=== PATIENT | male | born 1955 | race Caucasian/White ===

== ENCOUNTER → 2016-10-28 | Day surgery (SDC) | payer BC ==
[~2016-10-28] MED LIST: BUPIVACAINE/EPINEPHRINE 0.5% 50 ML VIAL ONE; CLINDAMYCIN PHOS 600 MG/4 ML VIAL ONE; LACTATED RINGER'S 1000 ML INJ 1,000 ML ONE; MIDAZOLAM HCL 2 MG/2 ML VIAL ONE; ONDANSETRON HCL 4 MG/2 ML VIAL IV PUSH ONE; SODIUM CHLORIDE 0.9% SOLN 100 ML BAG IV ONE
--- NOTE | 2016-10-29 08:19 | MP ---
cc: MICHAEL RAYGOZA M.D. DATE OF SURGERY 10/28/2016 PREOPERATIVE DIAGNOSIS Left knee medial meniscus tear. POSTOPERATIVE DIAGNOSES Left knee medial meniscus tear. PROCEDURE Left knee arthroscopic partial medial meniscectomy. SURGEON Dr. Michael Raygoza ANESTHESIA General ESTIMATED BLOOD LOSS Less than 10 cc TOURNIQUET TIME Zero minutes COMPLICATIONS None JUSTIFICATION This patient is a 61-year male who injured his left knee. He has had persistence of pain in regards to his condition with failed conservative treatment. Clinical exam, as well as MRI confirmed the above-named findings. The patient counseled as to the risks, benefits and alternatives to the above-named proposed surgical procedure. He did wish to proceed with surgery. PROCEDURE IN DETAIL A written consent was obtained. The patient identified by name, taken to the operating room, placed in the supine position. General anesthesia was administered, as well as 600 mg of IV Clindamycin. He DOES HAVE A PENICILLIN ALLERGY. The left thigh carefully placed in the well-padded leg olmos. The left lower extremity prepped and draped using Isopropyl alcohol, Hibiclens solution and DuraPrep solution. A time-out was performed and a standard medial and lateral parapatellar arthroscope portals were established. 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 The medial compartment revealed a large complex tear in the posterior horn of the medial meniscus. An arthroscopic biter, followed by an arthroscopic shaver was introduced into the medial compartment to perform a partial medial meniscectomy. The meniscal remnants were probed and noted to be stable. There was a focal area of grade 2 chondromalacia in the medial femoral condyle. The intercondylar notch revealed the anterior and posterior cruciate ligaments to be intact. The lateral compartment was free of meniscal pathology and chondromalacia. The shaver was used to perform a gentle chondroplasty along the undersurface of the patella. At the conclusion of the surgical procedure, 30 cc of 0.5% Marcaine with epinephrine was injected into the knee joint. The arthroscopic portals were closed with 3-0 Prolene suture. Sterile dressing applied. The patient tolerated the procedure well. No intraoperative complications were noted. MD URIEL Cary/CHARU /4:40 PM /8:06 AM
== END | disposition home or self-care (01) ==
LOC: ESDC 13:44
PROVIDERS: ATTEND Orthopaedic Surgery Sports Medicine
DX: S83.232A Complex tear of medial meniscus, current injury, left knee, initial encounter (principal)
CPT/HCPCS: 01400; 29881; J2250; J2405; J3010; J7120